=== PATIENT | female | born 1980 | race Caucasian/White ===

== ENCOUNTER 2020-11-03 09:09 | Inpatient (IN) | payer MEDICAID ==
[~2020-11-03] VITALS: Ht 160 cm; Wt 69.1 kg
[2020-11-03] MEDS ORDERED: PRENAVITE1 TAB PO (09:27)
[2020-11-03 09:39] LABS: HEMATOCRIT 33.1 % (36.0-48.0); HEMOGLOBIN 10.8 g/dL (12-16); MCH 27.7 pg (26.0-34.0); MCHC 32.6 g/dL (31.0-37.0); MCV 84.9 fL (80.0-100.0); MEAN PLATELET VOLUME 11.2 fL (7.4-10.4); RBC 3.9 10x6/uL (4.00-5.40); RDW 14.4 % (11.5-14.5); UDS - AMPHET NEGATIVE QUAL (NEGATIVE); UDS - BARB NEGATIVE QUAL (NEGATIVE); UDS - BENZO NEGATIVE QUAL (NEGATIVE); UDS - COCAINE NEGATIVE QUAL (NEGATIVE); UDS - OPIATE NEGATIVE QUAL (NEGATIVE); UDS - PCP NEGATIVE QUAL (NEGATIVE); UDS - THC NEGATIVE QUAL (NEGATIVE); WBC 13.6 10x3/uL (4.8-10.8)
[2020-11-03 09:49] VITALS: BP 114/74; Ht 160 cm; Wt 69.1 kg
--- NOTE | 2020-11-03 18:00 | NUR ---
PT TRANSFERRED TO ROOM 1257 FOR CARE. PT ORIENTED TO NEW ROOM, CALL LIGHT, AND BATHROOM. PT PROVIDED WITH PANTIES, PADS, AND SHOWER SUPPLIES PER REQUEST. FRESH ICE WATER GIVEN. WHITE BOARD UPDATED. PT DENIES FURTHER NEEDS AT THIS TIME. SRUx2, CL IN REACH. PT DAUGHTER IN ROOM, RESTING IN [place].
[2020-11-03 20:03] VITALS: BP 120/38
--- NOTE | 2020-11-03 20:03 | NUR ---
PATIENT TO ROOM FROM NURSERY PUSHING INFANT IN CRIB. SHIFT ASSESSMENT COMPLETED, SEE FLOWSHEET.
--- NOTE | 2020-11-03 20:16 | NUR ---
MOTRIN 800MG ADMINISTERED PO PER MD ORDERS AND PT REQUEST. SEE EMAR. SANDWICH TRAY, APPLE JUICE AND ICE PROVIDED. PT SITTING UP IN CHAIR . NO FURTHER NEEDS IDENTIFIED. WILL CONTINU TO MONITOR.
--- NOTE | 2020-11-03 22:20 | NUR ---
APPLE JUICE, SPRITE AND ICE PROVIDED PER PT REQUEST. NO FURTHER NEEDS IDENTIFIED. WILL CONTINUE TO MONITOR.
--- NOTE | 2020-11-04 00:36 | NUR ---
PATIENT CALLED OUT THREAD CLIPPER JACK STATING THAT SHE IS IN REALLY BAD PAIN FROM THE CRAMPS. DR CEDILLO CALLED AND NEW ORDER RECEIVED FOR PERCOCET 5/325MG PO NOW.
--- NOTE | 2020-11-04 00:47 | NUR ---
PERCOCET 5/325MG ADMINISTERED PO AT THIS TIME PER MD ORDERS. SEE EMAR.
--- NOTE | 2020-11-04 03:17 | NUR ---
PATIENT SLEEPING WITH EVEN RESPIRATIONS. NO DISTRESS NOTED. WILL CONTINUE TO MONITOR
--- NOTE | 2020-11-04 06:35 | NUR ---
PATIENT CHANGING INFANTS DIAPER. TYLENOL 650MG PO ADMININSTERED PER PT REQUEST. SEE EMARNO FURTHER NEEDS IDENTIFIED. WILL CONTINUE TO MONITOR
--- NOTE | 2020-11-04 08:05 | NUR ---
DR. HURLEY ON UNIT AND THEN TO ROOM TO SPEAK WITH PT. MD WILL ADD TORADOL FOR CRAMPING.
[2020-11-04 08:08] LABS: BASOPHILS 0 % (0-2); EOSINOPHILS 0.8 % (0-7); HEMATOCRIT 30.5 % (36.0-48.0); HEMOGLOBIN 9.8 g/dL (12-16); IMMATURE GRANULOCYTES 0.3 % (0-5); LYMPHOCYTE ABS# 1.55 10x3/uL (1.18-3.74); MCH 27.1 pg (26.0-34.0); MCHC 32.1 g/dL (31.0-37.0); MCV 84.5 fL (80.0-100.0); MEAN PLATELET VOLUME 11.5 fL (7.4-10.4); MONOCYTES 6.2 % (2-11); NEUTROPHIL ABS# 12.84 10x3/uL (1.56-6.13); NEUTROPHILS 82.7 % (40-80); PLATELET COUNT 189 10x3/uL (130-400); RBC 3.61 10x6/uL (4.00-5.40); RDW 14.4 % (11.5-14.5); WBC 15.5 10x3/uL (4.8-10.8)
[2020-11-04 08:13] LABS: RAPID PLASMA REAGIN Non Reactive (Non Reactive)
--- NOTE | 2020-11-04 08:35 | NUR ---
TO PT'S ROOM, PT IS LYING ON HER LEFT SIDE, ASLEEP, RESP EVEN AND UL. LIGHTS ARE DIMMED IN ROOM, PT NOT DISTURBED. SR UP X 2, CALL LIGHT AND PHONE WITHIN REACH.
[2020-11-04 09:15] VITALS: BP 128/72
--- NOTE | 2020-11-04 11:45 | NUR ---
DIETARY SERVES REGULAR LUNCH TRAY TO PT. PT DENIES ALL OTHER NEEDS AT THIS TIME.
--- NOTE | 2020-11-04 12:10 | NUR ---
TELEPHONE CALL MADE TO DR. HURLEY TO VERIFY VERBAL DISCHARGE ORDER, WILL DISCHARGE TO ROOM IN STATUS.
[2020-11-04] MEDS ORDERED: TORADOL10 MG PO (12:39)
[2020-11-04] MEDS ORDERED: IBUPROFEN600 MG PO (12:42)
--- NOTE | 2020-11-04 13:00 | NUR ---
DISCHARGE INSTRUCTIONS EXPLAINED TO PT, COPIES OF DISCHARGE INSTRUCTIONS, PP INSTRUCTIONS, EMERGENCY INFO, VAG DEL D/C, AND SPINAL HEADACHE INFO GIVEN TO PT.
--- NOTE | 2020-11-04 18:00 | NUR ---
ROOM CHECK, PT ASKING IF SHE CAN DISCHARGE HOME TOMORROW INSTEAD OF TODAY TO ROOM IN, SHE HAS NO ONE TO STRAP BUCKLER MACHINE SCRIPT FOR TORADOL WHICH WOULD NEED TO BE STARTED TODAY. WILL INFORM DR. AGUILAR. PT DENIES ALL OTHER NEEDS AT THIS TIME. 17 YEAR OLD DAUGHTER IN ROOM TENDING TO BABY. SRUP X2, CALL LIGHT AND PHONE WITHIN REACH.
--- NOTE | 2020-11-04 18:15 | NUR ---
DR. AGUILAR INFORMED OF PT'S REQUEST.
[2020-11-04 19:00] VITALS: BP 118/68
--- NOTE | 2020-11-04 19:00 | NUR ---
PATIENT SITTING IN BED HOLDING INFANT. SHIFT ASSESSMENT COMPLETED. SEE FLOWSHEET.
--- NOTE | 2020-11-04 19:49 | NUR ---
TORADOL 10MG ADMINISTERED PO PER MD ORDERS.
--- NOTE | 2020-11-04 20:26 | NUR ---
PATIENT SITTING UP IN ROOM, NO NEEDS IDENTFIED. WILL CONTINUE TO MONITOR
--- NOTE | 2020-11-04 22:30 | NUR ---
PATIENT LYING IN BED QUIETLY WITH EYES CLOSED, NO DISTRESS NOTED. DENIES NEEDS. WILL CONTINUE TO MONITOR.
--- NOTE | 2020-11-04 23:28 | NUR ---
PERCOCET ADMINISTERED PER MD ORDERS AND PT REQUEST, SEE EMAR
--- NOTE | 2020-11-04 23:48 | NUR ---
PERCOCET ADMINISTERED PER MD ORDERS AND PT REQUEST, SEE EMAR
--- NOTE | 2020-11-05 01:12 | NUR ---
PATIENT SITTING UP IN BED HOLDING INFANT. NO NEEDS IDENTIFIED, PT DENIES PAIN. WILL CONTINUE TO MONITOR
--- NOTE | 2020-11-05 03:39 | NUR ---
PATIENT SITTING UP IN BED . PT DENIES NEEDS AT THIS TIME. WILL CONTINUE TO MONITOR
[2020-11-05 07:30] VITALS: BP 114/64
--- NOTE | 2020-11-05 07:30 | NUR ---
PATIENT ASSESSMENT COMPLETED AT BEDSIDE. PATIENT DENIES NEEDS AT THIS TIME. FUNDUS FIRM MIDLINE U -1. BLEEDING SCANT TO LIGHT. PATIENT DENIES CLOTTS OR INCREASED BLEEDING. PLAN OF CARE UPDATED AT BEDSIDE. PATIENT VERBALIZED UNDERSTANDING. SIDE RAILS UP X2, BED IN LOW POSITION, CALL LIGHT WITHIN REACH.
--- NOTE | 2020-11-05 10:51 | NUR ---
PATIENT GIVEN COPY OF DISCHARGE INSTRUCTIONS INCLUDING EDUCTION, PRESCRIPTIONS AND FOLLOW UP APPOINTMENT. PATIENT VERBALIZES UNDERSTANDING OF INFORMATION PROVIDED. PATIENT TO DISCHARGE HOME IN STABLE CONDITION.
== END 2020-11-05 11:31 | disposition home or self-care (01) | DRG 806 ==
LOC: D.LD 09:09
PROVIDERS: ADMIT Obstetrics & Gynecology; ATTEND Obstetrics & Gynecology
PROC: 10E0XZZ Delivery of Products of Conception, External Approach (ICD-10-PCS; principal; 2020-11-03)
DX: O99.344 Other mental disorders complicating childbirth (principal); O72.1 Other immediate postpartum hemorrhage; Z37.0 Single live birth; F41.8 Other specified anxiety disorders; Z3A.39 39 weeks gestation of pregnancy